=== PATIENT | female | born 2000 | race Hispanic/Latino ===

== ENCOUNTER 2024-02-28 19:52 | Observation (INO) | payer MEDICAID ==
[~2024-02-28] VITALS: Ht 157.5 cm; Wt 121.1 kg
[2024-02-28 19:53] VITALS: BP 135/88; PULSE 97; RESP 20
[2024-02-28 20:36] LABS: APPEARANCE,URINE CLEAR (CLEAR); BILIRUBIN,URINE NEGATIVE (NEGATIVE); COLOR,URINE LIGHT-YELLOW (YELLOW); GLUCOSE, URINE (UA) NEGATIVE (NEGATIVE); KETONES,URINE NEGATIVE (NEGATIVE); LEUKOCYTE ESTERASE ,URINE NEGATIVE Leu/uL (NEGATIVE); NITRATE,URINE NEGATIVE (NEGATIVE); OCCULT BLOOD,URINE NEGATIVE (NEGATIVE); PH,URINE 7.5 (5.0-8.0); PROTEIN,URINE NEGATIVE (NEGATIVE); UROBILINOGEN,URINE 0.2 mg/dL (0.2-1.0)
[2024-02-28 20:38] LABS: ADD UA MICROSCOPIC NO
[2024-02-28 20:45] LABS: AMPHET/METH SCREEN,URINE NEGATIVE (NEGATIVE); BARBITURATE SCREEN, URINE NEGATIVE (NEGATIVE); BENZODIAZEPINES SCREEN,URINE NEGATIVE (NEGATIVE); CANNABINOID SCREEN,URINE NEGATIVE (NEGATIVE); COCAINE SCREEN,URINE NEGATIVE (NEGATIVE); OPIATE SCREEN,URINE NEGATIVE (NEGATIVE); PHENCYCLIDINE SCREEN,URINE NEGATIVE (NEGATIVE)
[2024-02-28] MEDS: PROMETHAZINE HCL 25 MG/ML 1ML AMPULE IM SCH (21:18)
[2024-02-28] MEDS: LACTATED RINGERS 1000ML 1,000 ML IV SCH (21:45)
== END 2024-02-28 21:39 | disposition home or self-care (01) ==
LOC: EDH 19:52 → LDH 19:53
PROVIDERS: ADMIT Obstetrics & Gynecology; ATTEND Obstetrics & Gynecology
DX: O99.891 Other specified diseases and conditions complicating pregnancy (principal); M54.50 Low back pain, unspecified; O26.893 Other specified pregnancy related conditions, third trimester; R10.2 Pelvic and perineal pain; Z3A.31 31 weeks gestation of pregnancy
CPT/HCPCS: 96372; 96360; 80305; 81003; G0378 ×2; G0379; J2550; J7120

== ENCOUNTER 2024-03-13 18:48 | Observation (INO) | payer MEDICAID ==
[~2024-03-13] VITALS: Ht 157.5 cm; Wt 104.3 kg
[2024-03-13 18:50] VITALS: BP 148/84; PULSE 103; RESP 18
[2024-03-13 19:29] LABS: APPEARANCE,URINE CLEAR (CLEAR); BILIRUBIN,URINE NEGATIVE (NEGATIVE); COLOR,URINE YELLOW (YELLOW); GLUCOSE, URINE (UA) NEGATIVE (NEGATIVE); KETONES,URINE NEGATIVE (NEGATIVE); LEUKOCYTE ESTERASE ,URINE NEGATIVE Leu/uL (NEGATIVE); NITRATE,URINE NEGATIVE (NEGATIVE); OCCULT BLOOD,URINE NEGATIVE (NEGATIVE); PH,URINE 6.5 (5.0-8.0); PROTEIN,URINE 30 mg/dL (NEGATIVE); UROBILINOGEN,URINE 3 mg/dL (0.2-1.0)
[2024-03-13 19:37] LABS: ADD UA MICROSCOPIC YES; AMPHET/METH SCREEN,URINE NEGATIVE (NEGATIVE); BARBITURATE SCREEN, URINE NEGATIVE (NEGATIVE); BENZODIAZEPINES SCREEN,URINE NEGATIVE (NEGATIVE); CANNABINOID SCREEN,URINE NEGATIVE (NEGATIVE); COCAINE SCREEN,URINE NEGATIVE (NEGATIVE); OPIATE SCREEN,URINE NEGATIVE (NEGATIVE); PHENCYCLIDINE SCREEN,URINE NEGATIVE (NEGATIVE)
[2024-03-13] MEDS: LACTATED RINGERS 1000ML IV SCH (19:50)
[2024-03-13 20:10] LABS: BACTERIA,URINE RARE /HPF (None Seen); MUCUS,URINE MOD LPF (None Seen); SQUAMOUS EPITHELIAL CELL,UR MOD /HPF (0-2)
== END 2024-03-13 21:02 | disposition home or self-care (01) ==
LOC: EDH 18:48 → LDH 18:49
PROVIDERS: ADMIT Obstetrics & Gynecology; ATTEND Obstetrics & Gynecology
DX: O26.893 Other specified pregnancy related conditions, third trimester (principal); R10.9 Unspecified abdominal pain; O34.63 Maternal care for abnormality of vagina, third trimester; N89.8 Other specified noninflammatory disorders of vagina; Z3A.33 33 weeks gestation of pregnancy
CPT/HCPCS: 96360; 80305; 81001; 76819; G0378 ×2; G0379; J7120

== ENCOUNTER 2024-12-21 18:33 | Emergency (ER) | payer MEDICAID ==
[~2024-12-21] VITALS: Ht 157.5 cm; Wt 95.3 kg
--- NOTE | 2024-12-21 18:55 | ERN ---
ED Note History of Present Illness Stated Complaint: 5MONTHS BACK PAIN,VOMITTING Chief Complaint: OB>20 weeks gest. Time Seen by MD: 18:43 Dictation: PATIENT IS A 24-YEAR-OLD FEMALE COMING IN TODAY COMPLAINING SEVERE AND SUDDEN ONSET OF BILATERAL FLANK AND PELVIC PAIN WITHOUT VAGINAL BLEEDING. SHE HAS HAD NAUSEA WITHOUT VOMITING. NO FEVER NO CHILLS. SHE STATES SHE IS20 WEEKS , PATIENT OF DR. SU IN [place]. A1 SHE DENIES VAGINAL BLEEDING Allergies: Coded Allergies: No Known Allergies (Unverified Allergy, Unknown, 02/28/24) No Known Drug Allergies (Unverified Allergy, Unknown, 02/28/24) Past Medical History Past Medical History: No Pertinent History Surgical History: LMP: Jul 15, 2024 : 4 Para: 2 Aborts: 1 RN Note Reviewed/Agreed w/PFSH: Yes Review of System Dictation CONSTITUTIONAL: NEGATIVE EXCEPT FOR HPI HEAD/FACE: NEGATIVE EXCEPT FOR HPI EENT: NEGATIVE EXCEPT FOR HPI RESPIRATORY: NEGATIVE EXCEPT FOR HPI GASTROINTESTINAL/ABDOMINAL: NEGATIVE EXCEPT FOR HPI SEVERE BILATERAL FLANK AND PELVIC PAIN NAUSEA GENITOURINARY: NEGATIVE EXCEPT FOR HPI MUSCULOSKELETAL: NEGATIVE EXCEPT FOR HPI INTEGUMENTARY: NEGATIVE EXCEPT FOR HPI NEUROLOGICAL/PSYCH: NEGATIVE EXCEPT FOR HPI HEMATOLOGIC/LYMPHATIC: NEGATIVE EXCEPT FOR HPI ALL SYSTEMS NEGATIVE, EXCEPT NOTED ABOVE. 13 POINT REVIEW OF SYSTEMS ASSESSED AND ALL NEGATIVE EXCEPT FOR ABOVE. Initial Vital Sign VS Vital Signs Date Time Temp Pulse Resp B/P (MAP) Pulse Ox O2 Delivery O2 Flow Rate FiO2 12/21/24 18:40 98.1 100 18 124/76 98 Room Air 0 12/21/24 19:47 21 Physical Exam Dictation VITAL SIGNS REVIEWED GENERAL APPEARANCE: ALERT, ORIENTED X 3, MODERATE ACUTE DISTRESS, WELL DEVELOPED, NOURISHED. HEAD AND FACE: NON-TRAUMATIC. EYES: PERRL, PINK CONJUNCTIVAS, EYELID NO TRAUMA, ANTERIOR CHAMBER WITH ARCUS SENILIS. EARS: PINNAS INTACT AND NO SIGNS OF TRAUMA OR ERYTHEMA EAR CANALS CLEAR AND NO DISCHARGE TM NO ERYTHEMA NOSE: NO DISCHARGE, NO BLEEDING. OROPHARYNX: MOUTH NORMAL, TONGUE PINK, PHARYNX CLEAR,NO ERYTHEMA, TONSILS NO EXUDATES, NO ABSCESSES NOTED, MUCOUS MEMBRANE MOIST NECK: SUPPLE, NON-TENDER, NO THYROMEGALY, NO MASSES, NO JVD, NO BRUITS BREAST:DEFERRED CHEST:NO TENDERNESS, NO CREPITUS, NO PARADOXICAL MOVEMENT, NO RETRACTIONS LUNGS:CLEAR, WELL-VENTILATED, SYMMETRIC, NO RALES, NO WHEEZING, NO RHONCHI, NO STRIDOR, GOOD BREATH SOUNDS BILATERALLY HEART: REGULAR RATE, REGULAR RHYTHM, NO MURMUR, NO GALLOPS VASCULAR: NO PERIPHERAL EDEMA, ABDOMEN: SOFT, POSITIVE BOWEL SOUNDS, NONDISTENDED, NO GUARDING, NONTENDER, NO REBOUND, NO MASSES NO HEPATOMEGALY, NO SPLENOMEGALY, NO WALDROP'S SIGN, NO HERNIAS. RECTAL: DEFERRED GENITAL: DEFERRED NEUROLOGICAL: NORMAL SPEECH, MOTOR FUNCTION INTACT, SENSORY FUNCTION INTACT MUSCULOSKELETAL: NECK NONTENDER, FULL RANGE OF MOTION, BACK NONTENDER, FULL RANGE OF MOTION, EXTREMITIES: NONTENDER, FULL RANGE OF MOTION SKIN: COLOR PINK, DRY, NO TURGOR, NO RASH, NO LACERATIONS, NO ABRASIONS, NO CONTUSIONS. LYMPHATIC: DEFERRED Results (Laboratory/Radiology) Laboratory/Radiology Laboratory Tests Test 12/21/24 19:15 White Blood Count 16.5 K/uL (4.8-10.8) H Red Blood Count 4.18 MIL/uL (4.00-5.50) Hemoglobin 11.2 g/dL (12.0-16.0) L Hematocrit 33.6 % (36-48) L Mean Corpuscular Volume 80.4 fL (79-99) Mean Corpuscular Hemoglobin 26.8 pg (27.0-33.0) L Mean Corpuscular Hemoglobin Concent 33.3 g/dL (32.0-36.0) Red Cell Distribution Width 14.3 % (11.0-15.5) Platelet Count 249 K/uL (130-400) Mean Platelet Volume 11.8 fL (7.5-10.5) H Immature Granulocyte % (Auto) 0.4 % (0-1) Neutrophils (%) (Auto) 77.0 % (40.0-77.0) Lymphocytes (%) (Auto) 17.5 % (21.0-51.0) L Monocytes (%) (Auto) 4.2 % (3.0-13.0) Eosinophils (%) (Auto) 0.7 % (0.0-8.0) Basophils (%) (Auto) 0.2 % (0.0-5.0) Neutrophils # (Auto) 12.7 K/uL (1.8-7.7) H Lymphocytes # (Auto) 2.9 K/uL (1.0-4.8) Monocytes # (Auto) 0.7 K/uL (0.1-1.0) Eosinophils # (Auto) 0.12 K/uL (0.00-0.70) Basophils # (Auto) 0.03 K/uL (0.00-0.20) Absolute Immature Granulocyte (auto 0.07 K/uL (0-1) Nucleated Red Blood Cells 0.0 % (0.0-0.19) Sodium Level 135 mmol/L (136-145) L Potassium Level 3.4 mmol/L (3.5-5.1) L Chloride Level 102 mmol/L (101-111) Carbon Dioxide Level 22 mmol/L (21-32) Blood Urea Nitrogen 6 mg/dL (7-18) L Creatinine 0.5 mg/dL (0.5-1.0) Glomerular Filtration Rate Calc 133 mL/min (>90) Random Glucose 96 mg/dL (70-105) Total Calcium 8.2 mg/dL (8.5-10.1) L Human Chorionic Gonadotropin, Quant 98831 mIU/mL (0-5) H 1935/OB ULTRASOUND GREATER THAN 20 WEEKS DEMONSTRATES VIABLE IUP, HEART RATE 157, [id number] Labs Reviewed?: Yes ED Course ED Course Orders Procedure Category Date Status Time Cbc With Differential LAB 12/21/24 Complete 18:50 Hcg,Quantitative LAB 12/21/24 Complete 18:50 Us Ob >14 Weeks US 12/21/24 Resulted 18:50 Type And Screen BBK 12/21/24 Complete 18:50 Basic Metabolic Panel LAB 12/21/24 Complete 18:50 Saline Lock Iv CPOE 12/21/24 Transmitted 18:50 Acetaminophen 500mg PHA 12/21/24 In Process Tab (Tylenol 500mg T 19:00 Urinalysis Profile LAB 12/21/24 Logged 18:50 Potassium Bicarb/Cit PHA 12/21/24 Complete Ac 25meq (K-Lyte Ta 21:00 Ns 1000ml X1 Bolus PHA 12/21/24 Verified 21:30 Zofran 4mg Ivp X1 Dose PHA 12/21/24 Verified 21:30 Current Medications Medications (Trade) Dose Ordered Sig/Jerod Route PRN Reason Start Time Stop Time Status Last Admin Dose Admin Acetaminophen (TYLenol 500MG TAB) 1,000 mg ONCE PO 12/21/24 19:00 12/21/24 23:00 12/21/24 20:03 Potassium Bicarbonate (K-Lyte Tablet Eff 25 Meq Tablet.eff) 25 meq ONCE ONCE PO 12/21/24 21:00 12/21/24 21:01 DC Vital Signs Date Time Temp Pulse Resp B/P (MAP) Pulse Ox O2 Delivery O2 Flow Rate FiO2 12/21/24 19:47 98.1 94 16 117/63 98 Room Air* 0 21 12/21/24 18:40 98.1 100 18 124/76 98 Room Air 0 1944/SPOKE WITH PATIENT REGARDING TRANSFER TO A HIGHER LEVEL OF CARE SHE AGREED TO BE TRANSFERRED TO [facility]. ADDITIONALLY SHE WAS PLACED IN A LEFT LATERAL POSITION FACILITATE VENOUS RETURNED. STATES HER PAIN IS A FIVE. NO VAGINAL BLEEDING. ALSO, SPOKE WITH NEVIN PHOENIX MECHANICAL SERVICE REPRESENTATIVE AND MADE HER AWARE OF THE NEED FOR TRANSFER TO HIGHER LEVEL OF [id number]/ 2049/spoke with Dr. Su at [facility] and the transfer center. I reviewed labs and ultrasound with Dr. Su he agreed to accept patient in transfer ER to ER and that she will be going to labor and delivery. Patient is maintained in a left lateral position for comfort acute distress 2114/PATIENT HAD ANOTHER EPISODE OF NAUSEA VOMITING. 1 L NORMAL SALINE AND ZOFRAN PENDING APPEAR TO [facility] Medical Decision Making MDM MDM: DIFFERENTIAL DIAGNOSIS: THREATENED MISCARRIAGE/ABDOMINAL PAIN IN /UTI/ELECTROLYTE IMBALANCE/DEHYDRATION RATIONALE: TESTS CONSIDERED AND ORDERED SECONDARY TO SHARED DECISION MAKING INCLUDE: LABS/AND RADIOLOGY PREVIOUS OUTSIDE RECORDS REVIEWED: OLD ER VISITS. RISK OF COMPLICATION AND/OR MORBIDITY OR MORTALITY OF PATIENT MANAGEMENT: NONE MEDICATIONS-PER MEDICATION RECONCILIATION NEED FOR HOSPITALIZATION: PATIENT DOES MEET CRITERIA FOR HOSPITALIZATION. PATIENT WILL BE TRANSFER TO HIGHER LEVEL OF CARE FOR MONITORING NEED FOR EMERGENCY MAJOR/MINOR SURGERY: NO THERE ARE NO SOCIAL CONCERNS WITH THIS PATIENT. PRESCRIPTION DRUG MANAGEMENT PRESCRIPTIONS WILL INCLUDE SYMPTOMATIC CARE PATIENT'S PRIOR EXTERNAL MEDICAL RECORDS FROM OTHER ER VISITS WERE REVIEWED BY ME INDICATED. PRIOR TESTING AND RESULTS FROM PREVIOUS VISITS WERE REVIEWED. PRIOR TESTS WERE TAKEN INTO ACCOUNT WITH MEDICAL DECISION MAKING AND RESOURCE UTILIZATION, INDEPENDENT HISTORIAN/HISTORIANS WERE USED TO OBTAIN COMPLETE MEDICAL HISTORY. I INDEPENDENTLY INTERPRETED THE TEST THAT WERE PERFORMED, RESULTS WERE REVIEWED BY ME AND CONSIDERED FINDINGS ON RADIOLOGY IF ORDERED. MEDICAL MANAGEMENT AND EXAMINATION INTERPRETATION DISCUSSIONS WERE HAD BY ME WITH OTHER QUALIFIED HEALTHCARE PROFESSIONALS INDICATED FOR THE PATIENT'S CARE. DX & DISP Disposition: Transfer Decision to Admit Time: 19:57 Departure Impression: Primary Impression: Abdominal pain in Additional Impressions: Second trimester , Hypokalemia, Dehydration, Nausea & vomiting Condition: Stable Referrals: HOLLIS LIN Jr., MD (PCP) Time of Disposition: 19:57 I have reviewed the case, and I agree with, Diagnosis and Plan CHRISTINA CORONA MANAGER CHINESE Dec 21, 2024 18:55
[2024-12-21 19:27] LABS: BASOPHILS # (AUTO) 0.03 K/uL (0.00-0.20); BASOPHILS % (AUTO) 0.2 % (0.0-5.0); EOSINOPHILS # (AUTO) 0.12 K/uL (0.00-0.70); EOSINOPHILS % (AUTO) 0.7 % (0.0-8.0); HEMATOCRIT 33.6 % (36-48); IMMATURE GRANULOCYTE ABSOLUTE 0.07 K/uL (0-1); LYMPHOCYTES # (AUTO) 2.9 K/uL (1.0-4.8); LYMPHOCYTES % (AUTO) 17.5 % (21.0-51.0); MEAN CORPUSCULAR HEMOGLOBIN 26.8 pg (27.0-33.0); MEAN CORPUSCULAR HGB CONC 33.3 g/dL (32.0-36.0); MEAN CORPUSCULAR VOLUME 80.4 fL (79-99); MONOCYTES # (AUTO) 0.7 K/uL (0.1-1.0); MONOCYTES % (AUTO) 4.2 % (3.0-13.0); NEUTROPHILS # (AUTO) 12.7 K/uL (1.8-7.7); PLATELET COUNT (AUTO) 249 K/uL (130-400); RED BLOOD CELL COUNT(AUTO) 4.18 MIL/uL (4.00-5.50); RED CELL DISTRIBUTION WIDTH 14.3 % (11.0-15.5); WHITE BLOOD COUNT (AUTO) 16.5 K/uL (4.8-10.8)
[2024-12-21 19:38] LABS: CREATININE 0.5 mg/dL (0.5-1.0); POTASSIUM 3.4 mmol/L (3.5-5.1)
--- NOTE | 2024-12-21 19:52 | HMCIMG ---
US OB >14 WEEKS HISTORY: SEVERE PELVIC AND BACK PAIN. TWENTY-TWO WEEKS NO VAGINAL. FINDINGS: Single fetus in breech presentation. heart rate: 159 bpm. Amniotic fluid index: 13 cm- normal. Placenta: Posterior and grade 1. No gross structural abnormality noted. brain with normal lateral ventricles, choroid plexus, cerebellum, and cisterna magna, stomach, kidneys and urinary bladder, spine, cord insertion, three-vessel cord, and a four-chamber view of the heart are all present and appear normal. BIOMETRIC DATA: Biparietal diameter: 5.9 cm, consistent with gestational age of 24 weeks 1 day. Head circumference: 23 cm, consistent with gestational age of 25 weeks 1 day. Abdominal circumference: 17 cm, consistent with gestational age of 22 weeks 5 days. Femoral length: 4 cm, consistent with gestational age of 23 weeks 2 days. weight: 570 grams. IMPRESSION: Single intrauterine of 23 weeks 6 days.
[2024-12-21] MEDS: acetaMINOPHEN 500 MG TABLET PO SCH (20:03)
--- NOTE | 2024-12-21 20:33 | NUR ---
TRANSFER: CALL PLACED TO [facility] TO INITIATE OB TRANSFER.
--- NOTE | 2024-12-21 21:14 | NUR ---
TRANSFER: CALL RECEIVED FROM [facility]; PATIENT ACCEPTED TO [facility], L&D #[id number]; DR. DESIREE BLANCAS. PATIENT MADE AWARE AND CONSENT TO TRANSFER SIGNED BY PATIENT.
--- NOTE | 2024-12-21 21:14 | NUR ---
PATIENT NAUSEATED/VOMITING. CHRISTINA BAG SEWER NOTIFIED. PENDING ORDERS
[2024-12-21] MEDS: 0.9%NACL 1000ML 1,000 ML IV ONE (21:22)
[2024-12-21] MEDS: ondanSETRON 4MG INJ IVP ONE (21:22)
--- NOTE | 2024-12-21 21:36 | NUR ---
TRANSPORTATION: CALL PLACED TO [facility] FOR PATIENT TRANSPORT TO [facility], L&D #[id number].
[2024-12-21 21:45] VITALS: BP 141/69; PULSE 99; RESP 16; TEMP 98.3; O2SAT 99
--- NOTE | 2024-12-21 21:53 | NUR ---
REPORT GIVEN TO PEREZ PHOENIX AT [facility] L&DED [facility]
[2024-12-21] MEDS: PoTASSium BIcarbonate/CIT AC 25 MEQ TABLET.EFF PO ONE (21:55)
--- NOTE | 2024-12-21 21:55 | NUR ---
PENDING EMS FOR TRANSPORT
== END 2024-12-21 22:44 | disposition short-term general hospital (02) ==
LOC: EDH 18:33
DX: O26.892 Other specified pregnancy related conditions, second trimester (principal); R10.2 Pelvic and perineal pain; R11.2 Nausea with vomiting, unspecified; O99.282 Endocrine, nutritional and metabolic diseases complicating pregnancy, second trimester; E86.0 Dehydration; E87.6 Hypokalemia; Z3A.22 22 weeks gestation of pregnancy
CPT/HCPCS: 99285; 96374; 76805; 80048; 84702; 85025; 86850; 86900; 86901; 36415; J7030; J2405